=== PATIENT | male | born 1985 | race Caucasian/White ===

== ENCOUNTER 2017-11-05 00:56 | Emergency (ER) | payer OTHER ==
[~2017-11-05] VITALS: Ht 188 cm; Wt 98.9 kg
--- NOTE | 2017-11-05 02:17 | RADIOLOGY REPORT ---
EXAMINATION: XR TIBIA AND FIBULA, RIGHT CLINICAL INFORMATION: Pain after hearing a pop COMPARISON: None TECHNIQUE: AP and lateral views of the right tibia and fibula were obtained. FINDINGS: No fracture or cortical disruption. Alignment is anatomic at the knee and ankle. The soft tissues appear unremarkable. IMPRESSION: No acute osseous abnormality.
--- NOTE | 2017-11-05 02:36 | ED UPPER/LOWER EXTREMITY COMPL ---
History of Present Illness General Chief Complaint: Lower Extremity Injury Stated Complaint: RT LEG PAIN AFTER FALL Source: patient Exam Limitations: no limitations Vital Signs & Intake/Output Vital Signs & Intake/Output Vital Signs Date Time Temp Pulse Resp B/P B/P Pulse O2 O2 Flow FiO2 Mean Ox Delivery Rate 11/05 0103 98.0 105 18 144/84 95 Room Air Allergies Uncoded Allergies: CILLINS (Severe, HIVES 04/25/12) Triage Note: PT TO ED C/O RLE INJURY 2 HRS AGO. STATES "I JUMPED AND I HEARD A POP" C/O PAIN TO RT CALF. STATES FELL ON LEFT SIDE. DENIES HEAD STRICKE. DENIES ANY OTHER INJURIES. DECLINES MEDS IN TRIAGE Triage Nurses Notes Reviewed? yes Onset: Abrupt Duration: minute(s):, constant, changing over time, continues in ED, getting worse Severity: moderate, severe HPI: Patient presents for evaluation of a possible right calf injury that occurred while playing soccer. Patient states he went to jump up and felt a pop in the mid point of his right calf. Past History Travel History Traveled to [place] past 21 day No Medical History Any Pertinent Medical History? see below for history Neurological: NONE EENT: NONE Cardiovascular: NONE Respiratory: NONE Gastrointestinal: NONE Hepatic: NONE Renal: NONE Musculoskeletal: NONE Psychiatric: NONE Endocrine: NONE Surgical History Surgical History: non-contributory Psychosocial History What is your primary language Kazakh Tobacco Use: Current Not Daily ETOH Use: occasional use Illicit Drug Use: denies illicit drug use Family History Hx Contributory? No Review of Systems Review of Systems Constitutional: Reports: no symptoms. EENTM: Reports: no symptoms. Respiratory: Reports: no symptoms. Cardiovascular: Reports: no symptoms. Gastrointestinal/Abdominal: Reports: no symptoms. Genitourinary: Reports: no symptoms. Musculoskeletal: Reports: see HPI. Skin: Reports: no symptoms. Neurological/Psychological: Reports: no symptoms. Hematologic/Endocrine: Reports: no symptoms. Immunological: Reports: no symptoms. All Other Systems: Reviewed and Negative Physical Exam Physical Exam General Appearance: SEE BELOW Comments: Gen.: Well-nourished, well-developed, no acute respiratory distress. Head: Normocephalic, atraumatic. Eyes: Normal inspection bilaterally Ears: Normal inspection bilaterally Nose: Normal inspection Throat/mouth : Moist mucosa Neck: Supple, full range of motion, no goiter Heart: Regular rate and rhythm Lungs: Quiet respirations Back: Normal range of motion Extremities: Right calf: Tenderness of the mid point of the calf posteriorly with a mild palpable defects, the right Achilles tendon appears intact. Neurologic: Cranial nerves grossly intact, speech is clear Skin: warm and dry Psychiatric: Calm, cooperative, no apparent delusions or hallucinations Progress Differential Diagnosis: contusion, dislocation, fracture, sprain, tendon injury Plan of Care: Orders Procedure Date/time Status Durable Medical Equipment 11/05 0239 Active Rest, Splint, anti-inflammatory, orthopedic follow-up Departure Departure Disposition: HOME OR SELF CARE Condition: Stable Clinical Impression Primary Impression: Muscle tear Referrals: Umang MILIAN,Carlos Manuel Goodrich (PCP/Family) Kendal MILIAN,Guevara Lopez Additional Instructions: Ibuprofen 600 mg every 6 hours as needed for calf pain. Ice and elevation 2-3 times per day for the next 48 hours. Follow-up with orthopedics this week for reevaluation (call tomorrow to arrange for follow-up appointment). Return if any concerns or sudden worsening. Please note that there might be incidental findings in your evaluation that are unrelated to the current emergency department visit. Please notify your primary care doctor about this emergency department visit in order to obtain and review all of the testing performed so that these incidental findings can be monitored as needed. If you had an x-ray performed, please understand that some fractures or other findings may not be seen on the initial set of x-rays. If your symptoms persist you might need a repeat set of x-rays to check for such a fracture. If you had a laceration evaluated, please understand that foreign bodies such as glass or wood may not be visible to the naked eye or on plain x-rays. If the wound becomes red, swollen, increasingly more painful or if there is any drainage from the wound, please have it reevaluated by a physician for the possibility of a retained foreign body. If you're unable to follow up as outlined in the discharge instructions please return to the emergency department. Thank you for choosing the [facility] for your care. It was a pleasure to serve you today. Claudy Figueroa M.D. [facility] Departure Forms: Customer Survey General Discharge Information Procedures Splinting Location: RIGHT CALF AND ANKLE AND FOOT Manual Alignment Performed: No Hand-Made Type: orthoglass Splint: POSTERIOR SHORT LEG SPLINT Splint Applied By: splint applied by me Pre-Proc Neuro Vasc Exam: normal Post-Proc Neuro Vasc Exam: normal
[2017-11-05 02:59] VITALS: BP 120/63
== END 2017-11-05 02:59 ==
LOC: ERH 00:56
DX: S86.911A Strain of unspecified muscle(s) and tendon(s) at lower leg level, right leg, initial encounter (principal); X50.9XXA Other and unspecified overexertion or strenuous movements or postures, initial encounter; Y93.66 Activity, soccer
CPT/HCPCS: 73590-RT